=== PATIENT | female | born 1940 | race Caucasian/White ===

== ENCOUNTER → 2017-03-18 | Outpatient (CLI) | payer OTHER ==
[~2017-03-18] MED LIST: AMOXICILLIN 50500 MG PO; CIPROFLOXACIN500 M3 PO; CLOPIDOGREL; COMBIVENT INH; FLAGYL500 MG PO; FLEXERIL PO; LEVOXYL150 MCG PO; LIPITOR10 MG PO; NORCO 5-325 TA1 EACH PO; PERCOCET 5-3251 EACH PO; PLAVIX 75 MG TA75 MG PO; PREDNISONE 10 M10 M1; PRINZIDE 20-251 EACH PO; SINGULAIR 10 MG10 M1 PO; SYMBICORT160 MCG/4. INH; TRENTAL400 MG PO
== END ==
LOC: M.RAD 08:34
DX: Z12.31 Encounter for screening mammogram for malignant neoplasm of breast (principal); M81.0 Age-related osteoporosis without current pathological fracture; Z78.0 Asymptomatic menopausal state

== ENCOUNTER 2017-10-04 08:16 | Emergency (ER) | payer OTHER ==
[~2017-10-04] VITALS: Ht 160 cm; Wt 59.9 kg
[~2017-10-04 08:16] MED LIST changes: -AMOXICILLIN 50500 MG PO; -FLEXERIL PO; -LIPITOR10 MG PO; -PERCOCET 5-3251 EACH PO; -SYMBICORT160 MCG/4. INH
[2017-10-04] MEDS ORDERED: AMOXICILLIN 50500 MG PO (08:28)
[2017-10-04] MEDS ORDERED: LIPITOR10 MG PO (08:28)
[2017-10-04] MEDS ORDERED: COMBIVENT INH (08:28)
[2017-10-04 08:55] LABS: HEMATOCRIT 47.4 % (37.0-47.0); HEMOGLOBIN 16.1 gm/dL (12.0-15.0); MCH 34.5 pg (26.0-34.0); MCV 101.4 fL (80.0-100.0); MPV 8.1 fl. (7.2-11.1); NUCLEATED RBCS 0 /100WBC; PLATELET COUNT* 255 thou/uL (150-400); RBC 4.67 mil/uL (4.20-5.00); RDW-CV 13.3 % (10.5-14.5); WBC 14.6 thou/uL (4.0-11.0)
[2017-10-04 09:02] LABS: CALCIUM 9.5 mg/dL (8.5-10.1); CREATININE 0.6 mg/dL (0.6-1.3); POTASSIUM 3.7 mmol/L (3.5-5.1)
[2017-10-04 09:14] LABS: ALBUMIN 3.8 g/dL (3.4-5.0); TOTAL BILIRUBIN 0.6 mg/dL (<0.1-1.0); TOTAL PROTEIN 7.5 g/dL (6.4-8.2)
[2017-10-04 09:46] LABS: ABSOLUTE EOSINOPHILS 0.1 thou/uL (0.0-0.7); ABSOLUTE LYMPHOCYTES 1.2 thou/uL (0.8-5.3); ABSOLUTE MONOCYTES 0.3 thou/uL (0.0-1.2); PLATELET ESTIMATE ADEQUATE
[2017-10-04] MEDS ORDERED: FLEXERIL PO (10:29)
[2017-10-04] MEDS ORDERED: PERCOCET 5-3251 EACH PO (10:29)
[2017-10-04 12:02] VITALS: BP 132/94
--- NOTE | 2017-10-06 09:36 | EKG ---
[place] [address] ELECTROCARDIOGRAM REPORT Name: EDGAR HEATH Room: [facility]#: [id number] Admission: 10/04/17 Attend Phys: Discharge: 10/04/17 Date of : 44 Report #: [id number] THIS REPORT FOR: //name// [facility] ED Test Date: 2017-10-04 Test Time: 08:59:41 Pat Name: EDGAR HEATH Department: Room: Gender: F Director Of Consulting Services: GUILLERMO : 1940 Requested By: Deangelo Flynn Order Number: [id number] MD: Cy Johnson Measurements Intervals [place] Rate: 70 P: -32 AL: 165 QRS: 47 QRSD: 89 T: QT: 343 QTc: 371 Interpretive Statements Sinus rhythm Borderline repolarization abnormality Baseline wander in lead(s) I,II,III,aVR,aVF,V1,V2,V3,V4,V5,V6 Compared to ECG 12/07/2016 15:14:35 No significant changes Electronically Signed On 10-06-2017 9:36:15 CDT by Cy Johnson [email or web address] <ELECTRONICALLY SIGNED> By: Cy Johnson MD, [facility] 10/06/17 0936 0859 [id number] Cy Johnson MD, [facility] /EPI
== END 2017-10-04 11:30 | disposition home or self-care (01) ==
LOC: M.ERS 08:16
PROVIDERS: Family Medicine
DX: S22.42XA Multiple fractures of ribs, left side, initial encounter for closed fracture (principal); M54.6 Pain in thoracic spine; J44.9 Chronic obstructive pulmonary disease, unspecified; I10 Essential (primary) hypertension; W07.XXXA Fall from chair, initial encounter; Y93.89 Activity, other specified; Y92.89 Other specified places as the place of occurrence of the external cause; Y99.8 Other external cause status

== ENCOUNTER 2017-11-29 18:30 | Emergency (ER) | payer OTHER ==
[~2017-11-29] VITALS: Ht 160 cm; Wt 60.3 kg
[~2017-11-29 18:30] MED LIST changes: +AMOXICILLIN 50500 MG PO; +FLEXERIL PO; +LIPITOR10 MG PO; +PERCOCET 5-3251 EACH PO
[2017-11-29] MEDS ORDERED: SYMBICORT160 MCG/4. INH (18:40)
[2017-11-29 19:23] VITALS: BP 149/74
--- NOTE | 2017-12-01 16:54 | EKG ---
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
== END 2017-11-29 19:24 | disposition home or self-care (01) ==
LOC: M.ERS 18:30
DX: R06.00 Dyspnea, unspecified (principal); I10 Essential (primary) hypertension; J44.9 Chronic obstructive pulmonary disease, unspecified; F17.210 Nicotine dependence, cigarettes, uncomplicated

== ENCOUNTER 2019-01-17 12:05 | Emergency (ER) | payer OTHER ==
[~2019-01-17] VITALS: Ht 162.6 cm; Wt 56.2 kg
[~2019-01-17 12:05] MED LIST changes: +SYMBICORT160 MCG/4. INH
[2019-01-17] MEDS ORDERED: NAPRELAN375 MG PO (12:23)
[2019-01-17] MEDS ORDERED: BACLOFEN5 MG PO (12:23)
[2019-01-17 12:43] LABS: HEMATOCRIT 45.2 % (37.0-47.0); HEMOGLOBIN 15.7 gm/dL (12.0-15.0); MCH 34.9 pg (26.0-34.0); MCHC 34.7 g/dL (28.0-37.0); MCV 100.7 fL (80.0-100.0); MPV 7.9 fl. (7.2-11.1); NUCLEATED RBCS 0 /100WBC; PLATELET COUNT* 296 thou/uL (150-400); RBC 4.49 mil/uL (4.20-5.00); WBC 13.7 thou/uL (4.0-11.0)
[2019-01-17 12:57] LABS: CREATININE 0.8 mg/dL (0.6-1.3); POTASSIUM 3.8 mmol/L (3.5-5.1)
[2019-01-17 13:01] LABS: ALBUMIN 3.7 g/dL (3.4-5.0); TOTAL BILIRUBIN 0.5 mg/dL (<0.1-1.0); TOTAL PROTEIN 7.3 g/dL (6.4-8.2)
[2019-01-17 13:05] LABS: ABSOLUTE LYMPHOCYTES 0.7 thou/uL (0.8-5.3); ABSOLUTE MONOCYTES 0.5 thou/uL (0.0-1.2); ABSOLUTE NEUTROPHILS 12.5 thou/uL (1.6-8.1); PLATELET ESTIMATE ADEQUATE
[2019-01-17 13:45] LABS: URINE BILIRUBIN NEGATIVE (Negative); URINE BLOOD NEGATIVE (Negative); URINE CLARITY CLEAR; URINE COLOR YELLOW; URINE GLUCOSE-RANDOM NEGATIVE (Negative); URINE KETONES NEGATIVE (Negative); URINE LEUKOCYTES-REFLEX NEGATIVE (Negative); URINE NITRITE-REFLEX NEGATIVE (Negative); URINE PROTEIN NEGATIVE (Negative); URINE UROBILINOGEN 0.2 E.U./dl (0.2-1.0)
[2019-01-17] MEDS ORDERED: NORCO 5-325 TA1 EAC1 PO (15:30)
[2019-01-17] MEDS ORDERED: PREDNISONE50 MG PO (15:30)
[2019-01-17 15:50] VITALS: BP 133/64
--- NOTE | 2019-01-18 10:58 | EKG ---
[place] [address] ELECTROCARDIOGRAM REPORT Name: IVANAEDGAR Gutierrez Room: 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 <ELECTRONICALLY SIGNED> By: Tan Graham MD, FACC 01/18/19 1057 1242 1242 Tan Graham MD, FACC /EPI
== END 2019-01-17 15:52 | disposition home or self-care (01) ==
LOC: M.ERS 12:05
PROVIDERS: Emergency Medicine Emergency Medical Services; Physician Assistant
DX: J44.1 Chronic obstructive pulmonary disease with (acute) exacerbation (principal); M54.6 Pain in thoracic spine; R07.81 Pleurodynia; I10 Essential (primary) hypertension

== ENCOUNTER 2019-02-04 13:35 | Emergency (ER) | payer OTHER ==
[~2019-02-04] VITALS: Ht 160 cm; Wt 56.7 kg
[~2019-02-04 13:35] MED LIST changes: +BACLOFEN5 MG PO; +NAPRELAN375 MG PO; +NORCO 5-325 TA1 EAC1 PO; +PREDNISONE50 MG PO
[2019-02-04] MEDS ORDERED: MONTELUKAST SODI4 M1 PO (14:29)
[2019-02-04] MEDS ORDERED: COMBIVENT INH (14:30)
[2019-02-04] MEDS ORDERED: SYMBICORT160 MCG/4. INH (14:30)
[2019-02-04] MEDS ORDERED: KEFLEX500 M1 PO (16:15)
[2019-02-04 16:43] VITALS: BP 138/60
== END 2019-02-04 16:44 | disposition home or self-care (01) ==
LOC: M.ERS 13:35
DX: S90.521A Blister (nonthermal), right ankle, initial encounter (principal); J45.909 Unspecified asthma, uncomplicated; J44.9 Chronic obstructive pulmonary disease, unspecified; I10 Essential (primary) hypertension; X58.XXXA Exposure to other specified factors, initial encounter; Y93.89 Activity, other specified; Y92.89 Other specified places as the place of occurrence of the external cause; Y99.8 Other external cause status

== ENCOUNTER → 2019-02-22 | Outpatient (CLI) | payer OTHER ==
[~2019-02-22] MED LIST changes: +KEFLEX500 M1 PO; +MONTELUKAST SODI4 M1 PO
== END ==
LOC: M.ULTRA 12:20
DX: M43.8X4 Other specified deforming dorsopathies, thoracic region (principal); M43.16 Spondylolisthesis, lumbar region; M51.36 Other intervertebral disc degeneration, lumbar region; M41.86 Other forms of scoliosis, lumbar region; I99.8 Other disorder of circulatory system

== ENCOUNTER 2019-05-02 11:13 | Inpatient (IN) | payer OTHER ==
[~2019-05-02] VITALS: Ht 157.5 cm; Wt 56.2 kg
[~2019-05-02 11:13] MED LIST changes: +PENTOXIFYLLINE400 MG PO; -TRENTAL400 MG PO
[2019-05-02 11:14] VITALS: BP 154/67
[2019-05-02] MEDS ORDERED: TRAMADOL 50 MG50 MG PO (11:26)
[2019-05-02] MEDS ORDERED: LASIX 40 MG TAB40 MG PO (11:27)
[2019-05-02 12:01] LABS: HEMATOCRIT 42.5 % (37.0-47.0); HEMOGLOBIN 14.2 gm/dL (12.0-15.0); MCH 33.2 pg (26.0-34.0); MCHC 33.4 g/dL (28.0-37.0); MCV 99.5 fL (80.0-100.0); MPV 8.2 fl. (7.2-11.1); NUCLEATED RBCS 0 /100WBC; PLATELET COUNT* 291 thou/uL (150-400); RBC 4.27 mil/uL (4.20-5.00); RDW-CV 13.5 % (10.5-14.5); WBC 13.6 thou/uL (4.0-11.0)
[2019-05-02 12:02] LABS: PCO2 43.8 mmHg (35.0-45.0); pH 7.499 (7.340-7.450)
[2019-05-02 12:03] LABS: PO2 43.3 mmHg (75.0-100.0)
[2019-05-02 12:15] LABS: CALCIUM 9.3 mg/dL (8.5-10.1); CREATININE 0.6 mg/dL (0.6-1.3)
[2019-05-02 12:29] LABS: ALBUMIN 3.3 g/dL (3.4-5.0); TOTAL BILIRUBIN 0.5 mg/dL (<0.1-1.0); TOTAL PROTEIN 6.9 g/dL (6.4-8.2)
[2019-05-02 12:52] LABS: ABSOLUTE EOSINOPHILS 0.1 thou/uL (0.0-0.7); ABSOLUTE LYMPHOCYTES 0.7 thou/uL (0.8-5.3); ABSOLUTE MONOCYTES 0.5 thou/uL (0.0-1.2); ABSOLUTE NEUTROPHILS 12.2 thou/uL (1.6-8.1); ANISOCYTOSIS 1+; PLATELET ESTIMATE ADEQUATE; POIKILOCYTOSIS 1+
[2019-05-02 13:28] LABS: INFLUENZA A ANTIGEN Negative (Negative); INFLUENZA B ANTIGEN Negative (Negative)
--- NOTE | 2019-05-02 16:24 | EKG ---
[place] [address] ELECTROCARDIOGRAM REPORT Name: EDGAR HEATH Room: [place] [address] ADM IN M.R.#: [id number] Admission: 05/02/19 Attend Phys: Vivek Jay, Discharge: Date of : 44 Date of Service: 05/02/19 1132 Report #: [id number] THIS REPORT FOR: //name// [facility] ED Test Date: 2019-05-02 Test Time: 11:32:46 Pat Name: EDGAR HEATH Department: Room: [facility] Gender: F Matching Machine Operator: COREY : 1940 Requested By: Benny Fitzgerald Order Number: [id number] MD: Wiley Riggs Measurements Intervals [place] Rate: 75 P: MA: QRS: 73 QRSD: 78 T: 269 QT: 524 QTc: 586 Interpretive Statements sinus rhythm artifact noted Nonspecific T abnormalities, diffuse leads Prolonged QT interval Compared to ECG 01/17/2019 12:42:44 no change Electronically Signed On 05-02-2019 16:23:08 CDT by Wiley Riggs [email or web address] <ELECTRONICALLY SIGNED> By: Wiley Riggs MD, FAC 05/02/19 1623 1132 1132 Wiley Riggs MD, [facility] /EPI
[2019-05-02 16:39] VITALS: BP 115/47
[2019-05-02 16:40] VITALS: BP 141/61
[2019-05-02 20:30] VITALS: BP 145/51
[2019-05-03 07:03] LABS: ABSOLUTE LYMPHOCYTES 0.4 thou/uL (0.8-5.3); MPV 8.2 fl. (7.2-11.1); NUCLEATED RBCS 0 /100WBC
[2019-05-03 07:05] LABS: ABSOLUTE MONOCYTES 0.6 thou/uL (0.0-1.2); ABSOLUTE NEUTROPHILS 7.9 thou/uL (1.6-8.1); BASOPHILS 0.4 %; HEMATOCRIT 40.2 % (37.0-47.0); HEMOGLOBIN 13.6 gm/dL (12.0-15.0); LYMPHOCYTES 4.7 %; MCH 33.5 pg (26.0-34.0); MCHC 33.8 g/dL (28.0-37.0); MCV 99.1 fL (80.0-100.0); MONOCYTES 6.5 %; PLATELET COUNT* 297 thou/uL (150-400); POLYS 88.4 %; RBC 4.06 mil/uL (4.20-5.00); RDW-CV 13.7 % (10.5-14.5)
[2019-05-03 07:10] LABS: CALCIUM 8.7 mg/dL (8.5-10.1); CREATININE 0.6 mg/dL (0.6-1.3); POTASSIUM 4.2 mmol/L (3.5-5.1)
[2019-05-03 08:00] VITALS: BP 166/61
[2019-05-03 16:00] VITALS: BP 139/69
[2019-05-03 19:50] VITALS: BP 150/65
[2019-05-04 05:01] LABS: ABSOLUTE LYMPHOCYTES 0.2 thou/uL (0.8-5.3); ABSOLUTE MONOCYTES 0.3 thou/uL (0.0-1.2); ABSOLUTE NEUTROPHILS 8.4 thou/uL (1.6-8.1); BASOPHILS 0.2 %; HEMATOCRIT 39.3 % (37.0-47.0); HEMOGLOBIN 13.1 gm/dL (12.0-15.0); LYMPHOCYTES 2.4 %; MCH 33.3 pg (26.0-34.0); MCHC 33.5 g/dL (28.0-37.0); MCV 99.6 fL (80.0-100.0); MONOCYTES 3.2 %; NUCLEATED RBCS 0 /100WBC; PLATELET COUNT* 275 thou/uL (150-400); POLYS 94.2 %; RBC 3.94 mil/uL (4.20-5.00); RDW-CV 13.9 % (10.5-14.5)
[2019-05-04 05:40] LABS: CALCIUM 8.8 mg/dL (8.5-10.1); CREATININE 0.6 mg/dL (0.6-1.3); POTASSIUM 4.5 mmol/L (3.5-5.1)
[2019-05-04 08:00] VITALS: BP 154/68
[2019-05-04 19:40] VITALS: BP 147/74
[2019-05-05 05:56] LABS: ABSOLUTE LYMPHOCYTES 1.7 thou/uL (0.8-5.3); ABSOLUTE NEUTROPHILS 7.6 thou/uL (1.6-8.1); BASOPHILS 0.1 %; EOSINOPHILS 0.2 %; HEMATOCRIT 40.4 % (37.0-47.0); HEMOGLOBIN 13.5 gm/dL (12.0-15.0); LYMPHOCYTES 16.7 %; MCH 33.3 pg (26.0-34.0); MCHC 33.5 g/dL (28.0-37.0); MCV 99.5 fL (80.0-100.0); MONOCYTES 9.7 %; MPV 8.4 fl. (7.2-11.1); NUCLEATED RBCS 0 /100WBC; PLATELET COUNT* 271 thou/uL (150-400); POLYS 73.3 %; RBC 4.06 mil/uL (4.20-5.00); RDW-CV 13.4 % (10.5-14.5); WBC 10.4 thou/uL (4.0-11.0)
[2019-05-05 06:10] LABS: ALBUMIN 2.8 g/dL (3.4-5.0); CALCIUM 8.3 mg/dL (8.5-10.1); CREATININE 0.5 mg/dL (0.6-1.3); POTASSIUM 3.4 mmol/L (3.5-5.1); TOTAL BILIRUBIN 0.3 mg/dL (<0.1-1.0)
[2019-05-05 08:58] VITALS: BP 137/60
[2019-05-05 19:30] VITALS: BP 162/93
[2019-05-06] VITALS (24 sets, daily range): BP systolic 98–162; BP diastolic 44–93
[2019-05-06 12:06] LABS: HEMATOCRIT 39.4 % (37.0-47.0); HEMOGLOBIN 13.1 gm/dL (12.0-15.0); MCH 33.3 pg (26.0-34.0); MCHC 33.3 g/dL (28.0-37.0); MCV 100.1 fL (80.0-100.0); MPV 8.5 fl. (7.2-11.1); RBC 3.93 mil/uL (4.20-5.00); RDW-CV 13.4 % (10.5-14.5); WBC 12.2 thou/uL (4.0-11.0)
[2019-05-06 12:11] LABS: APTT 49.6 Seconds (25.0-31.3); INR 1.1; PROTIME 10.8 Seconds (9.20-11.50)
[2019-05-07] VITALS (38 sets, daily range): BP systolic 97–147; BP diastolic 42–68
[2019-05-07 04:12] LABS: ABSOLUTE LYMPHOCYTES 0.9 thou/uL (0.8-5.3); ABSOLUTE MONOCYTES 1.2 thou/uL (0.0-1.2); BASOPHILS 0.1 %; EOSINOPHILS 0.1 %; HEMATOCRIT 35.9 % (37.0-47.0); HEMOGLOBIN 11.9 gm/dL (12.0-15.0); MCH 33.1 pg (26.0-34.0); MCHC 33.2 g/dL (28.0-37.0); MCV 99.7 fL (80.0-100.0); MONOCYTES 9.4 %; MPV 8.1 fl. (7.2-11.1); NUCLEATED RBCS 0 /100WBC; PLATELET COUNT* 234 thou/uL (150-400); POLYS 83.4 %; RDW-CV 13.6 % (10.5-14.5); WBC 13.2 thou/uL (4.0-11.0)
[2019-05-07 04:35] LABS: ALBUMIN 3.1 g/dL (3.4-5.0); CALCIUM 8.3 mg/dL (8.5-10.1); CREATININE 0.7 mg/dL (0.6-1.3); POTASSIUM 4.5 mmol/L (3.5-5.1); TOTAL BILIRUBIN 0.5 mg/dL (<0.1-1.0)
[2019-05-08] VITALS (22 sets, daily range): BP systolic 97–132; BP diastolic 40–68
[2019-05-08 01:37] LABS: ABSOLUTE LYMPHOCYTES 1.1 thou/uL (0.8-5.3); ABSOLUTE MONOCYTES 1.4 thou/uL (0.0-1.2); BASOPHILS 0.1 %; EOSINOPHILS 0.1 %; HEMATOCRIT 29.7 % (37.0-47.0); LYMPHOCYTES 7.8 %; MCH 33.2 pg (26.0-34.0); MCHC 33.6 g/dL (28.0-37.0); MCV 98.8 fL (80.0-100.0); MONOCYTES 10.4 %; MPV 8.3 fl. (7.2-11.1); NUCLEATED RBCS 0 /100WBC; PLATELET COUNT* 190 thou/uL (150-400); POLYS 81.6 %; RDW-CV 13.5 % (10.5-14.5); WBC 13.5 thou/uL (4.0-11.0)
[2019-05-08 01:54] LABS: ALBUMIN 2.4 g/dL (3.4-5.0); CALCIUM 7.9 mg/dL (8.5-10.1); CREATININE 0.6 mg/dL (0.6-1.3); TOTAL BILIRUBIN 0.5 mg/dL (<0.1-1.0); TOTAL PROTEIN 5.3 g/dL (6.4-8.2)
[2019-05-08 01:55] LABS: POTASSIUM 3.1 mmol/L (3.5-5.1)
[2019-05-09] VITALS (24 sets, daily range): BP systolic 104–154; BP diastolic 38–72
[2019-05-09 03:43] LABS: ABSOLUTE LYMPHOCYTES 1.1 thou/uL (0.8-5.3); ABSOLUTE MONOCYTES 1.4 thou/uL (0.0-1.2); ABSOLUTE NEUTROPHILS 11.2 thou/uL (1.6-8.1); BASOPHILS 0.1 %; EOSINOPHILS 0.1 %; HEMATOCRIT 28.1 % (37.0-47.0); HEMOGLOBIN 9.5 gm/dL (12.0-15.0); LYMPHOCYTES 7.8 %; MCH 33.4 pg (26.0-34.0); MCV 98.2 fL (80.0-100.0); MONOCYTES 10.3 %; MPV 8.2 fl. (7.2-11.1); NUCLEATED RBCS 0 /100WBC; PLATELET COUNT* 216 thou/uL (150-400); POLYS 81.7 %; RBC 2.86 mil/uL (4.20-5.00); RDW-CV 13.5 % (10.5-14.5); WBC 13.8 thou/uL (4.0-11.0)
[2019-05-09 04:03] LABS: ALBUMIN 2.3 g/dL (3.4-5.0); CALCIUM 8.6 mg/dL (8.5-10.1); CREATININE 0.6 mg/dL (0.6-1.3); POTASSIUM 3.7 mmol/L (3.5-5.1); TOTAL BILIRUBIN 0.4 mg/dL (<0.1-1.0); TOTAL PROTEIN 5.5 g/dL (6.4-8.2)
--- NOTE | 2019-05-09 14:07 | PATH ---
[address] [address] PATHOLOGY RPT PROCEDURE Name: EDGAR HEATH Room: [address] IN .R.#: [id number] Admission: 05/02/19 Date of : 44 Discharge: Report #: [id number] Path Case #: [id number] LCA Accession Number: [id number] . 01 Material submitted: . artery - PLAQUE BILATERAL FEMORAL ARTERY. Modifiers: bilateral, femoral . 01 Clinical history: . Acutely ischemic bilateral legs. . 02 Diagnosis: Plaque bilateral femoral artery: - Fibrointimal atherosclerotic plaque with prominent calcification. . (PAULINE:mml; 05/09/2019) QLM 05/09/2019 1242 Local . 02 Electronically signed: . Tunde Gonsalves MD, Pathologist NPI- [id number] . 01 Gross description: . Received in formalin labeled "Corina Heath, plaque bilateral femoral artery" are multiple mathur-yellow cylindrical fragments of yellow-mathur tissue measuring in aggregate 3.8 x 2.8 x 0.6 cm. Calcifications comprise approximately 60% of the specimen. Paste Mixer Liquid cross sections are submitted in cassette A1 following decalcification. ([facility]; 05/08/2019) [facility] 05/08/2019 1116 Local . 02 Pathologist provided ICD-10: I70.201, I70.202 . 02 CPT . 545478, 354181 Specimen Comment: A courtesy copy of this report has been sent to [phone] Specimen Comment: [phone], Specimen Comment: Report sent to ,DR PALM / DR BRYANT Performed at: 01 [place] [id number] [facility] [address], [place] [id number] MD Won Corral MD Phone: [phone] Performed at: 02 [facility] [address], [place], [place] [id number] MD Tunde Gonsalves MD Phone: [phone]
[2019-05-10] VITALS (23 sets, daily range): BP systolic 104–152; BP diastolic 46–67
[2019-05-10 04:02] LABS: ABSOLUTE LYMPHOCYTES 1.8 thou/uL (0.8-5.3); BASOPHILS 0.1 %; HEMATOCRIT 26.6 % (37.0-47.0); MCHC 33.7 g/dL (28.0-37.0); NUCLEATED RBCS 0 /100WBC
[2019-05-10 04:35] LABS: ABSOLUTE MONOCYTES 1.6 thou/uL (0.0-1.2); ABSOLUTE NEUTROPHILS 10.5 thou/uL (1.6-8.1); ALBUMIN 2.2 g/dL (3.4-5.0); CALCIUM 8.9 mg/dL (8.5-10.1); CREATININE 0.6 mg/dL (0.6-1.3); EOSINOPHILS 0.2 %; LYMPHOCYTES 13.2 %; MCH 33.3 pg (26.0-34.0); MCV 98.6 fL (80.0-100.0); MONOCYTES 11.1 %; MPV 8.2 fl. (7.2-11.1); PLATELET COUNT* 264 thou/uL (150-400); POLYS 75.4 %; POTASSIUM 3.2 mmol/L (3.5-5.1); RDW-CV 13.6 % (10.5-14.5); TOTAL BILIRUBIN 0.5 mg/dL (<0.1-1.0); TOTAL PROTEIN 5.6 g/dL (6.4-8.2)
[2019-05-11] VITALS (14 sets, daily range): BP systolic 110–139; BP diastolic 39–63
[2019-05-11 04:04] LABS: ABSOLUTE LYMPHOCYTES 1.5 thou/uL (0.8-5.3); ABSOLUTE MONOCYTES 1.8 thou/uL (0.0-1.2); ABSOLUTE NEUTROPHILS 10.5 thou/uL (1.6-8.1); BASOPHILS 0.2 %; HEMATOCRIT 22.9 % (37.0-47.0); HEMOGLOBIN 7.7 gm/dL (12.0-15.0); LYMPHOCYTES 10.9 %; MCH 33.3 pg (26.0-34.0); MCHC 33.7 g/dL (28.0-37.0); MCV 98.7 fL (80.0-100.0); MONOCYTES 12.7 %; MPV 8.2 fl. (7.2-11.1); NUCLEATED RBCS 0 /100WBC; PLATELET COUNT* 283 thou/uL (150-400); POLYS 76.2 %; RBC 2.32 mil/uL (4.20-5.00); RDW-CV 13.4 % (10.5-14.5); WBC 13.8 thou/uL (4.0-11.0)
[2019-05-11 04:16] LABS: CALCIUM 7.9 mg/dL (8.5-10.1); CREATININE 0.6 mg/dL (0.6-1.3)
[2019-05-11 04:19] LABS: POTASSIUM 4.2 mmol/L (3.5-5.1)
[2019-05-12] VITALS (18 sets, daily range): BP systolic 94–162; BP diastolic 41–77
[2019-05-12 04:14] LABS: HEMATOCRIT 20.8 % (37.0-47.0); MCHC 33.4 g/dL (28.0-37.0); MCV 98.9 fL (80.0-100.0); MPV 8.1 fl. (7.2-11.1); NUCLEATED RBCS 0 /100WBC; PLATELET COUNT* 319 thou/uL (150-400); RBC 2.11 mil/uL (4.20-5.00); RDW-CV 13.7 % (10.5-14.5); WBC 14.4 thou/uL (4.0-11.0)
[2019-05-12 04:17] LABS: CREATININE 0.6 mg/dL (0.6-1.3); POTASSIUM 3.4 mmol/L (3.5-5.1)
[2019-05-12 04:20] LABS: HEMOGLOBIN 6.9 gm/dL (12.0-15.0)
[2019-05-12 05:09] LABS: ABSOLUTE LYMPHOCYTES 2.6 thou/uL (0.8-5.3); ABSOLUTE MONOCYTES 1.3 thou/uL (0.0-1.2); ABSOLUTE NEUTROPHILS 10.5 thou/uL (1.6-8.1); PLATELET ESTIMATE ADEQUATE
[2019-05-12 13:00] LABS: HEMATOCRIT 27.8 % (37.0-47.0); HEMOGLOBIN 9.7 gm/dL (12.0-15.0)
--- NOTE | 2019-05-12 13:07 | PATH ---
[address] [address] PATHOLOGY RPT PROCEDURE Name: EDGAR HEATH Room: [address] IN ..#: [id number] Admission: 05/02/19 Date of : 44 Discharge: Report #: [id number] Path Case #: [id number] LCA Accession Number: [id number] . 01 Material submitted: . artery - RIGHT FEMORAL THROMBUS. Modifiers: right, femoral . 01 Clinical history: . Acute right limb ischemia . 02 Diagnosis: Right femoral thrombus: - Thrombus and fibrointimal atherosclerotic plaque with prominent calcification. (PAULINE/db; 05/12/2019) LBQ 05/12/2019 1222 Local . 02 Electronically signed: . Tunde Gonsalves MD, Pathologist NPI- [id number] . 01 Gross description: . The specimen is received in formalin, labeled "Edgar Heath, right femoral thrombus". Received is a moderate amount of blood coagulum admixed with pale mathur material measuring 2.5 x 2.0 x 0.6 cm in aggregate dimensions. The specimen is filtered and entirely submitted in cassette A1. ([facility]; 05/11/2019) QAC/QAC 05/11/2019 1050 Local . 02 Pathologist provided ICD-10: I70.201 . 02 CPT . 062387 Specimen Comment: A courtesy copy of this report has been sent to [phone] Specimen Comment: Report sent to Performed at: [address], [place], [place] [id number] MD Won Corral MD Phone: [phone] Performed at: 02 [facility] [address], [place], [place] [id number] MD Tunde Gonsalves MD Phone: [phone]
[2019-05-13 04:00] VITALS: BP 144/63
[2019-05-13 04:28] LABS: ABSOLUTE LYMPHOCYTES 2.4 thou/uL (0.8-5.3); ABSOLUTE MONOCYTES 1.5 thou/uL (0.0-1.2); ABSOLUTE NEUTROPHILS 10.3 thou/uL (1.6-8.1); BASOPHILS 0.1 %; EOSINOPHILS 0.2 %; HEMATOCRIT 24.3 % (37.0-47.0); HEMOGLOBIN 8.3 gm/dL (12.0-15.0); LYMPHOCYTES 16.8 %; MCH 32.3 pg (26.0-34.0); MCHC 34.1 g/dL (28.0-37.0); MONOCYTES 10.5 %; MPV 7.9 fl. (7.2-11.1); NUCLEATED RBCS 0 /100WBC; PLATELET COUNT* 324 thou/uL (150-400); POLYS 72.4 %; RBC 2.56 mil/uL (4.20-5.00); RDW-CV 15.5 % (10.5-14.5); WBC 14.2 thou/uL (4.0-11.0)
[2019-05-13 04:39] LABS: CALCIUM 8.4 mg/dL (8.5-10.1); CREATININE 0.7 mg/dL (0.6-1.3); POTASSIUM 3.1 mmol/L (3.5-5.1)
[2019-05-13 08:00] VITALS: BP 136/74
[2019-05-13 12:22] VITALS: BP 130/62
[2019-05-13] MEDS ORDERED: HYDROCODON-ACE1 EAC7 PO (12:28)
[2019-05-13] MEDS ORDERED: LIDOCAINE1 EACH TRANSDERM (12:32)
[2019-05-13] MEDS ORDERED: ELIQUIS5 MG PO (12:35)
[2019-05-13] MEDS ORDERED: MIRALAX17 GM PO (12:37)
[2019-05-13] MEDS ORDERED: PLAVIX 75 MG TA75 MG PO (12:39)
[2019-05-13] MEDS ORDERED: DOXYCYCLINE 10100 MG PO (12:47)
[2019-05-13 13:00] VITALS: BP 130/62
[2019-05-13] MEDS ORDERED: PREDNISONE 10 M10 M1 PO (13:45)
[2019-05-13] MEDS ORDERED: PROTONIX40 M2 PO (13:47)
--- NOTE | 2019-05-14 09:07 | OP ---
[address] [address] OPERATIVE REPORT Name: EDGAR HEATH Room: [address] IN M.R.#: [id number] Admission: 05/02/19 Attend Phys: Vivek Jay MD Discharge: 05/13/19 Date of : 44 Report #: [id number] THIS REPORT FOR: //name// cc: Kristen Carver MD, Tuongvan T. MD ~ THIS REPORT FOR: //name// CC: Vivek Carver DATE OF SERVICE: 05/02/2019 PREOPERATIVE DIAGNOSIS: Acute limb ischemia, right lower extremity. POSTOPERATIVE DIAGNOSIS: Acute limb ischemia, right lower extremity. PROCEDURE: Thrombectomy of right profunda artery with profundoplasty as well as endarterectomy of a focal flap. SURGEON: Omkar Irvin DO THEATRE DIRECTOR: Mihaela SURESH ANESTHESIA: General endotracheal anesthesia. ESTIMATED BLOOD LOSS: 200 mL. SPECIMEN: Thrombus right common femoral artery and profunda artery. COMPLICATIONS: None. CONDITION: Stable. DISPOSITION: ICU. INDICATIONS FOR PROCEDURE AND CONSENT: The patient is a 78-year-old female who underwent bilateral femoral endarterectomy and iliac angioplasty by my partner, Dr. Beckford over the weekend. She developed new symptoms of right leg numbness and tingling. CT angiogram was performed, which demonstrated thrombosis of the right profunda artery. She had known SFA occlusion. A recommendation for thrombectomy with possible bypass was made. After risks and benefits were discussed, the patient wished to proceed, was consented and scheduled urgently. PROCEDURE IN DETAIL: After timeout was performed, the patient was placed in supine position with sterile prep and drape of the anterior and bilateral groins, bilateral thighs. The right femoral incision was reopened with a [address] [place] [address] OPERATIVE REPORT Name: EDGAR HEATH Room: [address] IN [facility].#: [id number] Admission: 05/02/19 Attend Phys: Vivek Jay MD Discharge: 05/13/19 Date of : 44 Report #: [id number] blade scalpel and dissection carried down with Metzenbaum scissors and all Vicryl sutures and previous sutures were removed. Self-retaining retractors were applied and the femoral artery was identified and controlled proximally and distally with a large vessel loop. The profunda artery was dissected out a little more distally. The patient was re-heparinized with 6000 units of heparin, allowed to circulate for several minutes. Clamps were applied. The femoral artery patch was opened longitudinally to provide good visualization. Thrombus was then removed manually with forceps as well as #3 and #4 Esa from the profunda and proximal superficial femoral artery. There was a large clot over the bifurcation, but the proximal femoral artery was spared. A #4 Esa was also passed proximally with modest and flow result. Blood pressure was around 102. At that time, I did review the CT scan to see if there is any concern for inflow disease, of course she does have significant aortoiliac disease and there was also some thrombus in the abdominal aorta that may have embolized which is what I think may have happened as I did not find any significant technical defect. There was still an area of small flap at the origin of the profunda artery, but this did not appear to be occlusive. I did tack it with a 6-0 Prolene U-stitch as precaution. The profunda artery back blood easily and I did not reapply clamps to avoid additional injury. I then reclosed the patch with a 5-0 Prolene suture in a running fashion. Blood flow was restored and a triphasic flow was heard within the profunda artery. There was some turbulence within the femoral artery, but this has been visually inspected and there was no concern for technical issue within the common femoral artery. I sculpted the posterior tibial and anterior tibial vessels with a Doppler and there were excellent signals for both. At this point, I did not reverse heparin. We did apply Kan to the area and closed in layers using 2-0 Vicryl, 3-0 Vicryl and 4-0 Monocryl suture. Dermabond dressing was applied. The patient tolerated the procedure well. Lap, needle and instrument counts correct. <ELECTRONICALLY SIGNED> By: Yassine Patrick DO 05/14/19 0907 1554 1654Omkar Irvin DO /nt
--- NOTE | 2019-05-14 09:07 | OP ---
[address] [address] OPERATIVE REPORT Name: EDGAR HEATH Room: [address] IN M.R.#: [id number] Admission: 05/02/19 Attend Phys: Vivek Jay MD Discharge: 05/13/19 Date of : 44 Report #: [id number] THIS REPORT FOR: //name// cc: Kristen Carver MD, Tuongvan T. MD ~ THIS REPORT FOR: //name// CC: Vivek Carver DATE OF SERVICE: 05/06/2019 PREOPERATIVE DIAGNOSIS: Severe peripheral vascular disease with tissue loss of left leg and rest pain bilaterally. POSTOPERATIVE DIAGNOSIS: Severe peripheral vascular disease with tissue loss of left leg and rest pain bilaterally. PROCEDURES: 1. Aortogram with bilateral iliac and femoral angiograms. 2. Right common iliac artery angioplasty and stenting. 3. Right external iliac artery angioplasty and stenting. 4. Left common femoral artery angioplasty and stenting. 5. Repair of pseudoaneurysm left external iliac artery with a covered stent graft. 6. Ultrasound guidance for arterial access left common femoral artery with image saved. SURGEON: Benny Beckford MD OCCUPATIONAL PHYSICIAN: Conner López, surgical aide. COMPLICATIONS: None. ESTIMATED BLOOD LOSS: The patient had a left iliac rupture with some internal bleeding. Other blood loss was minimal. ANESTHESIA: Local sedation. INDICATIONS FOR PROCEDURE: The patient is a very pleasant 78-year-old white female who I first saw in the office a month ago. At that time, she had rest pain in her bilateral legs as well as bilateral lower extremity ulcers. She also had severely diminished ankle brachial indices bilaterally, which were clearly too low for healing and she was at imminent risk for limb loss. At that time, I recommended a CT angiogram and then urgent revascularization of her bilateral lower extremities starting with the left [place] [address] OPERATIVE REPORT Name: EDGAR HEATH Room: [address]#: [id number] Admission: 05/02/19 Attend Phys: Vivek Jay MD Discharge: 05/13/19 Date of : 44 Report #: [id number] to be the worse of the two. However, at that time, the patient refused any further workup and refused CT scan, angiogram or surgical intervention. We had planned to see her back in the office several weeks later to rediscuss and reassess to see if we can commence her to proceed with further workup, but she did not show for her appointment. She is now admitted to the hospital with rib fractures that she suffered after she fell due to leg weakness. Her legs remain chronically ischemic. She continues to have severe rest pain bilaterally. She dangles her legs off the bed to get sleep. She has no current ulcers of her right leg, but her left leg continues to have an ankle ulcer, which is nonhealing for many months. Her left leg is also severely tender to palpation. For this reason, I am taking her today for a left leg angiogram with intervention. Unfortunately, they were unable to get a CAT scan prior to my procedure today, so this will be diagnostic with intervention as needed. Informed consent was obtained from the patient with risks including but not limited to bleeding, infection, need for further surgery, pain, , heart attack, stroke, amputation. The patient understood these risks and was agreeable to proceed. Clearly without proceeding, she will end up with amputation of one or both of her legs. FINDINGS: 1. Aorta is diffusely diseased, but no significant stenosis. 2. Left common iliac artery is flush occlusion at its origin and reconstitutes in the external iliac artery. The hypogastric artery on the left is not visualized. The left external iliac artery is patent, but severely diseased. 3. The right common and external iliac arteries are patent, but severely diseased along the lengths. There was a previous right common iliac stent, which is patent. 4. The middle sacral artery is very prominent and provides large collaterals to the pelvic arteries and then to the common femoral arteries bilaterally. 5. Bilateral common femoral arteries have large bulky plaque causing significant stenosis. 6. Bilateral SFAs are occluded at the origin did not evaluate for distal reconstitution on the study. 7. Bilateral profunda femoris arteries are widely patent with large collaterals distally and are the main blood flow to the feet bilaterally. DESCRIPTION OF PROCEDURE: The patient was taken to the angio suite, placed in supine position. Bilateral groins were prepped and draped in usual sterile fashion. Timeout was performed. I used 10 mL of 1% lidocaine throughout the procedure for local anesthetic. I accessed the right common femoral artery without difficulty. I used Seldinger technique to exchange out for a 6-Gabonese sheath. I passed an Omniflush catheter into the abdominal aorta and performed aortogram. I attempted to cannulate the left iliac system from above, but was unsuccessful due to the flush occlusion. I thus accessed the left common femoral artery. I used ultrasound guidance with an image saved. I used Seldinger technique to exchange out for a 6-Gabonese sheath. Using a wire and [address] [address] OPERATIVE REPORT Name: EDGAR HEATH Room: [address] IN [facility].#: [id number] Admission: 05/02/19 Attend Phys: Vviek Jay MD Discharge: 05/13/19 Date of : 44 Report #: [id number] catheter, I attempted to cross the occlusion retrograde. I made some good progress and was able to get up to the aortic bifurcation, but was in a dissection plane and unable to reenter the aorta. I thus opened a 6.5-Gabonese TourGuide sheath. I passed this up the right side into the abdominal aorta. I adjusted the tip of the sheath so that it engaged the left iliac origin. Using this for more purchase, I was able to pass a Glidewire and a seeker catheter through the occlusion in the left iliac artery. I confirmed I was in the true lumen of the external iliac artery with the distal angiogram. I angioplastied a channel through the occlusion with a 6 mm balloon. Imaging after this showed that there was now patent flow through the left iliac system; however, there was occlusion of the right iliac system now. I pulled back the sheath and shot another angiogram and it was apparent that some plaque had embolized down the right common iliac and was lodged within the previous iliac stent. I thus re-angioplastied and stented the entire right common and external iliac arteries using a 10 x 40 E-Luminexx stent within the common iliac and an 8 x 40 E-Luminexx stent in the external iliac arteries. I post-dilated the external iliac artery with a 6 mm balloon and the common iliac artery with an 8 mm balloon. Completion imaging showed excellent result with resolution of the embolus/occlusion. I readvanced my sheath up and over the aortic bifurcation. I placed a 10 x 80 E-Luminexx stent extending from the left iliac origin down through the occlusion. I post-dilated the stent with an 8 mm balloon with good result; however, there was evidence for severe stenosis/occlusion to distal stent and minimal contrast flow distally. I still had my wire across the occlusion. I angioplastied the external iliac artery with a 6 mm and then an 8 mm balloon very gently. Despite being cautious, the left external iliac artery ruptured and the patient had extravasation of contrast. At this point in time, the patient's blood pressure did drop from the 90s to the 60s. I inflated an 8 mm balloon to occlude the rupture. We quickly upsized our left femoral sheath to a 7-Gabonese sheath and exchanged out for a Viabahn stent graft measuring 8 x 5. I deployed the stent over the iliac rupture and post-dilated with a 6 mm balloon. Completion imaging showed excellent result with no further extravasation of contrast and excellent blood flow through the iliac system on the left. I noted the femoral artery findings of severe common femoral artery stenosis bilaterally and occlusions of the bilateral SFAs. Given that the patient had iliac rupture and was unstable in the middle of the case, I did not feel comfortable proceeding with any further revascularization today. The patient's blood pressure had stabilized after repair of the pseudoaneurysm. At this point in time, we removed our sheath and placed 6/7-Gabonese Mynx devices bilaterally. We held pressure for 5 minutes. There was no bleeding or hematoma. The patient was heparinized throughout the critical portions of the procedure. Her feet were pink and warm with good cap refill upon completion. All needle and instrument counts were correct. She was taken alert and awake to the ICU in stable condition. We will plan to monitor her in the ICU for 24 hours given the iliac pseudoaneurysm. Plan at this point in time will be to see how she does. If her rest pain has [address] [address] OPERATIVE REPORT Name: EDGAR HEATH Room: [address] IN .R.#: [id number] Admission: 05/02/19 Attend Phys: Vivek Jay MD Discharge: 05/13/19 Date of : 44 Report #: [id number] resolved with this inflow procedure today and her left ankle ulcer heals, then we would not recommend further revascularization given her multiple comorbidities. However, if she continues to have rest pain and/or tissue loss bilaterally, then she would likely require common femoral artery endarterectomy on the symptomatic side plus or minus SFA angioplasty and stenting versus bypass fem-pop. <ELECTRONICALLY SIGNED> By: Yassine Patrick DO 05/14/19 0907 1042 1129Benny Beckford MD /dana
--- NOTE | 2019-05-14 09:07 | OP ---
[address] [address] OPERATIVE REPORT Name: EDGAR HEATH Room: [address] IN M.R.#: [id number] Admission: 05/02/19 Attend Phys: Vivek Jay MD Discharge: 05/13/19 Date of : 44 Report #: [id number] THIS REPORT FOR: //name// cc: Kristen Carver MD, Tuongvan T. MD ~ THIS REPORT FOR: //name// CC: Vivek Carver DATE OF SERVICE: 05/06/2019 PREOPERATIVE DIAGNOSIS: Ischemic bilateral lower extremities. POSTOPERATIVE DIAGNOSIS: Ischemic bilateral lower extremities. PROCEDURES: 1. Right common femoral artery endarterectomy with patch angioplasty. 2. Left common femoral artery endarterectomy with patch angioplasty. 3. Eversion endarterectomy of the right external iliac artery. 4. Eversion endarterectomy of the left iliac artery. 5. Eversion endarterectomy of the left profunda femoris artery. SURGEON: Benny Beckford MD CLIENT EXPERIENCE CONSULTANT: Conner Camilo COMPLICATIONS: None. ESTIMATED BLOOD LOSS: 200 mL. SPECIMEN: Includes plaque, bilateral. ANESTHESIA: General. INDICATIONS FOR PROCEDURE: The patient is a very pleasant 78-year-old white female, who had acute lower extremity ischemia bilaterally. We took her for angiogram today. 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 We did use a Mynx closure device bilaterally. On the right side, she had an ischemic leg after the procedure. The left side was not acutely ischemic but remained chronically ischemic. I was concerned about an occluded right common femoral artery. For this reason, I took her emergently to the operating room for right common femoral endarterectomy with the plans to do the left side as well if she was tolerating right side well. Informed consent was obtained from the patient with risks including but not limited to bleeding, infection, need for further surgery, [phone] [id number] OPERATIVE REPORT Name: EDGAR HEATH Room: [address]#: [id number] Admission: 05/02/19 Attend Phys: Vivek Jay MD Discharge: 05/13/19 Date of : 44 Report #: [id number] pain, , heart attack, stroke, and amputation. The patient understood these risks and was agreeable to proceed. DESCRIPTION OF PROCEDURE: The patient was taken to the operating room and placed in the supine position. After adequate general anesthesia was initiated, her bilateral groins were prepped and draped from the umbilicus to knees. I created a longitudinal incision in the patient's right groin. Sharp and blunt dissections were carried down to the common femoral artery. This was noted to be hard. It was pulseless. I controlled the profunda femoris as well as the external iliac artery. 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 I created a longitudinal arteriotomy in the common femoral artery extending onto the profunda femoris. There was a large amount of bulky plaque. Proximally, there was a flap pulled up by the balloon from the Mynx device. I performed endarterectomy in standard fashion using a Herminie elevator and a pair of pickups. I performed eversion endarterectomy of the external iliac artery. I tacked down the flap leading into the profunda femoris. I used a 6-0 Prolene suture for this. I then closed my arteriotomy with a bovine pericardial patch and a running 5-0 Prolene suture. At the completion of the repair, there was adequate hemostasis and a multiphasic signal throughout the common femoral and into the profunda femoris. I packed the wound with Ray-Coby. The patient was doing fine, so we moved onto the left side. On the left side, I created a longitudinal incision. Sharp and blunt dissections were carried on the common femoral artery. I controlled the external iliac as well as the profunda femoris. 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 I created a longitudinal arteriotomy. This vessel was patent but had a large amount of bulky plaque. I performed endarterectomy in standard fashion using a Herminie elevator and a pair of pickups. I performed eversion endarterectomy of the external iliac artery. I also performed eversion endarterectomy of the profunda femoris. I closed my arteriotomy with a bovine pericardial patch and a running 5-0 Prolene suture. At the completion of repair, there was adequate hemostasis and a multiphasic signal throughout the common femoral and profunda femoris. I irrigated the wound beds with antibiotic saline and controlled bleeding as needed with electrocautery, ties, clips, and Kan. I corrected the heparin with protamine. I closed the wound in multiple layers using 2-0 Vicryl, 3-0 Vicryl, and Monocryl for the skin. The incisions were dressed with Dermabond. The patient was taken alert and awake to recovery room in good condition with pink toes with good capillary refill. All needle and instrument counts were correct. <ELECTRONICALLY SIGNED> By: Yassine Patrick DO 05/14/19 [id number] felice Galloway
== END 2019-05-13 15:50 | DRG 270 ==
LOC: M.ERS 11:13 → M.ICU 13:35 → M.3W 13:35 → M.TBA-ER 13:35 → M.3W 16:32 → M.ICU 05-06 10:18 → M.2W 05-12 12:33
PROVIDERS: Emergency Medicine; Internal Medicine; Surgery Vascular Surgery; ADMIT Internal Medicine
PROC: 04CK0ZZ Extirpation of Matter from Right Femoral Artery, Open Approach (ICD-10-PCS; principal; 2019-05-02)
PROC: 04UL0KZ Supplement Left Femoral Artery with Nonautologous Tissue Substitute, Open Approach (ICD-10-PCS; 2019-05-06)
PROC: 04CH0ZZ Extirpation of Matter from Right External Iliac Artery, Open Approach (ICD-10-PCS; 2019-05-06)
PROC: 04UK0KZ Supplement Right Femoral Artery with Nonautologous Tissue Substitute, Open Approach (ICD-10-PCS; 2019-05-06)
PROC: 04CJ0ZZ Extirpation of Matter from Left External Iliac Artery, Open Approach (ICD-10-PCS; 2019-05-06)
PROC: 04UJ0KZ Supplement Left External Iliac Artery with Nonautologous Tissue Substitute, Open Approach (ICD-10-PCS; 2019-05-06)
PROC: 04CL0ZZ Extirpation of Matter from Left Femoral Artery, Open Approach (ICD-10-PCS; 2019-05-06)
PROC: 04CK0ZZ Extirpation of Matter from Right Femoral Artery, Open Approach (ICD-10-PCS; 2019-05-06)
PROC: 047H3DZ Dilation of Right External Iliac Artery with Intraluminal Device, Percutaneous Approach (ICD-10-PCS; 2019-05-06)
PROC: B41D1ZZ Fluoroscopy of Aorta and Bilateral Lower Extremity Arteries using Low Osmolar Contrast (ICD-10-PCS; 2019-05-06)
PROC: 047C3DZ Dilation of Right Common Iliac Artery with Intraluminal Device, Percutaneous Approach (ICD-10-PCS; 2019-05-06)
PROC: 04VJ3DZ Restriction of Left External Iliac Artery with Intraluminal Device, Percutaneous Approach (ICD-10-PCS; 2019-05-06)
PROC: 04UH0KZ Supplement Right External Iliac Artery with Nonautologous Tissue Substitute, Open Approach (ICD-10-PCS; 2019-05-06)
PROC: 047L3DZ Dilation of Left Femoral Artery with Intraluminal Device, Percutaneous Approach (ICD-10-PCS; 2019-05-06)
PROC: 30233N1 Transfusion of Nonautologous Red Blood Cells into Peripheral Vein, Percutaneous Approach (ICD-10-PCS; 2019-05-12)
DX: I73.89 Other specified peripheral vascular diseases (principal); J15.6 Pneumonia due to other Gram-negative bacteria; J96.01 Acute respiratory failure with hypoxia; J96.02 Acute respiratory failure with hypercapnia; E43 Unspecified severe protein-calorie malnutrition; S22.41XA Multiple fractures of ribs, right side, initial encounter for closed fracture; J98.11 Atelectasis; J44.0 Chronic obstructive pulmonary disease with (acute) lower respiratory infection; R65.10 Systemic inflammatory response syndrome (SIRS) of non-infectious origin without acute organ dysfunction; D62 Acute posthemorrhagic anemia; J44.1 Chronic obstructive pulmonary disease with (acute) exacerbation; I74.09 Other arterial embolism and thrombosis of abdominal aorta; I10 Essential (primary) hypertension; I99.8 Other disorder of circulatory system; I70.201 Unspecified atherosclerosis of native arteries of extremities, right leg; X58.XXXA Exposure to other specified factors, initial encounter; G47.33 Obstructive sleep apnea (adult) (pediatric); M54.9 Dorsalgia, unspecified; G89.29 Other chronic pain; Z68.22 Body mass index [BMI] 22.0-22.9, adult; Z79.899 Other long term (current) drug therapy; Z87.891 Personal history of nicotine dependence; Y93.89 Activity, other specified; Y92.89 Other specified places as the place of occurrence of the external cause; Y99.8 Other external cause status; Z72.89 Other problems related to lifestyle